=== PATIENT | female | born 1965 | race Caucasian/White ===

== ENCOUNTER → 2018-02-23 20:42 | Emergency (ER) | payer OTHER ==
[~2018-02-23 20:42] MED LIST: LORazepam TAB(*) 1 MG PO ONE
--- NOTE | 2018-02-23 22:25 | ED ---
Psychiatric Complaint - HPI Summary HPI Summary: The pt is a 52 y/o female presenting to [facility] c/o unmedicated anxiety for the last three years worsened today. She notes intermittent chest tightness rated 3/ 10 in severity, insomnia, tremors, L knee swelling and bilateral LE weakness but denies SI/HI and N/V/D. The sx are worsened by family problems such as the loss of her brother 3 years ago. She saw a counsellor today for the first time but was not given any medications. - History Of Current Complaint Chief Complaint: EDPsychosocial Time Seen by Provider: 02/23/18 21:54 Hx Obtained From: Patient, Family/Flotation Operator Onset/Duration: Still Present, Other - 3 years Timing: Constant Character: Anxious Aggravating Factor(s): Recent Stress Alleviating Factor(s): Nothing Has Suicidal: Denies: Thoughts, With A Plan Has Homicidal: Denies: Thoughts, With A Plan - Allergies/Home Medications Allergies/Adverse Reactions: Allergies Allergy/AdvReac Type Severity Reaction Status Date / Time No Known Allergies Allergy Verified 02/23/18 21:01 PMH/Surg Hx/FS Hx/Imm Hx Previously Healthy: No Endocrine/Hematology History: Denies: Hx Diabetes Cardiovascular History: Reports: Hx Hypertension - Previously medicated Sensory History: Denies: Hx Deafness Psychiatric History: 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 Denies: Hx Anxiety, Hx Attention Deficit Hyperactivity Disorder, Hx Autism, Hx Eating Disorder, Hx Oppositional [place] Disorder, Hx Depression, Hx Panic Disorder, Hx Post Traumatic Stress Disorder, Hx Inpatient Treatment, Hx Community Mental Health Tx, Hx Schizophrenia, Hx Bipolar Disorder, Hx Suicide Attempt, Hx of Violent Episodes Against Others, Other Psychiatric Issues/ Disorders - Cancer History Cancer Type, Location and Year: Breast Cancer - Surgical History Surgery Procedure, Year, and Place: Double mastectomy Infectious Disease History: No Infectious Disease History: Denies: Traveled Outside the [place] in Last 30 Days - Family History Known Family History: Positive: Cardiac Disease Negative: Respiratory Disease - Social History Occupation: Unemployed Lives: Alone Alcohol Use: None - Hx of EtOH abuse Substance Use Type: Reports: None Smoking Status (MU): Former Smoker Review of Systems Constitutional: Other - Positive: Insomnia Respiratory: Other - Positive: Chest tightness Negative: Vomiting, Diarrhea, Nausea Musculoskeletal: Other - Positive:Bilateral LE weakness, L knee swelling Positive: Anxious, Other - Negative: SI/HI All Other Systems Reviewed And Are Negative: Yes Physical Exam - Summary Physical Exam Summary: GENERAL: Patient is a well developed and nourished F who is lying comfortable in the stretcher. Patient is not in any acute respiratory distress. HEAD AND FACE: Normocephalic EYES: PERRLA, EOMI x 2. EARS: Hearing grossly intact. MOUTH: Oropharynx within normal limits. NECK: Supple, trachea is midline, no adenopathy, no JVD, no carotid bruit. CHEST: Symmetric, no tenderness at palpation LUNGS: Clear to auscultation bilaterally. No wheezing or crackles. CVS: Regular rate and rhythm, S1 and S2 present, no murmurs or gallops appreciated. ABDOMEN: Soft, non-tender. Bowel sounds are normal. No abdominal abnormal pulsations. EXTREMITIES: Full ROM in all major joints, no edema, no cyanosis or clubbing. NEURO: Alert and oriented x 3. No acute neurological deficits. Speech is normal and follows commands. SKIN: Dry and warm Triage Information Reviewed: Yes Vital Signs On Initial Exam: Initial Vitals Temp Pulse Resp BP Pulse Ox 98.6 F 88 18 146/86 97 02/23/18 20:58 02/23/18 20:58 02/23/18 20:58 02/23/18 20:58 02/23/18 20:58 Vital Signs Reviewed: Yes Diagnostics - Vital Signs Vital Signs Temp Pulse Resp BP Pulse Ox 02/23/18 20:58 98.6 F 88 18 146/86 97 - Laboratory Result Diagrams: 02/23/18 23:54 02/23/18 23:54 Lab Statement: Any lab studies that have been ordered have been reviewed, and results considered in the medical decision making process. - Radiology CXR Radiology Interpretation Completed By: ED Physician - IMPRESSION: No acute processes - EKG 23:03 Cardiac Rate: NL - 77 bpm EKG Rhythm: Sinus Rhythm Summary of EKG Findings: Normal axes Re-Evaluation - Re-Evaluation First Eval Re-Evaluation Time: 12:50 Change: Improved - The chest pain has decreased after taking Ativan Course/Dx - Course Course Of Treatment: A 52 year-old F presents to the ED with a CC of anxiety for the last three years worsened today. She notes intermittent chest tightness rated 3/10 in severity, insomnia, tremors, L knee swelling and LE weakness but denies SI/HI and N/V/D. A physical exam, Chest X-ray and EKG are all unremarkable. In the ED course, pt was given Lorazepam 1mg PO which improved the symptoms. Patient will be discharged with a final Dx of anxiety and chest pain. She has a follow up appointment with her therapist tomorrow morning. I discussed results with patient and he agrees with this plan. She is hemodynamically stable upon discharge. Strict return precautions given and she will otherwise follow up with a motion study engineer. Allergies noted. - Differential Dx/Clinical Impression Provider Diagnosis: Anxiety, Chest pain Discharge - Sign-Out/Discharge Documenting (check all that apply): Patient Departure - DC - Discharge Plan Condition: Improved Disposition: HOME Patient Education Materials: Chest Pain (ED), Anxiety (ED) Referrals: Wilder Kwon MD [Medical Doctor] - As Soon As Possible Binta Corey MD [Primary Care Provider] - Additional Instructions: Follow up with the motion study engineer as soon as possible. Return to ED for any new or worsening symptoms - Billing Disposition and Condition Condition: IMPROVED Disposition: Home - Attestation Statements Document Initiated by Scribe: Yes Documenting Scribe: Antonella Kelly Provider For Whom Jostin is Documenting (Include Credential): Dr. Nichol Rayo MD Scribe Attestation: Antonella Castro , scribed for Dr. Nichol Rayo MD on 02/24/18 at 0519. Scribe Documentation Reviewed: Yes Provider Attestation: The documentation as recorded by the Antonella saini accurately reflects the service I personally performed and the decisions made by me, Dr. Nichol Rayo MD
[2018-02-24 00:01] LABS: ABS Basophils 0.2 10^3/ul (0-0.2); ABS Eosinophils 0.1 10^3/ul (0-0.6); ABS Lymphocytes 3.5 10^3/ul (1.0-4.8); ABS Monocytes 0.5 10^3/ul (0-0.8); ABS Neutrophils 6.2 10^3/ul (1.5-7.7); ABS Nucleated RBC 0 10^3/ul; Eosinophil % 0.8 % (0-6); Hematocrit 43 % (35-47); Hemoglobin 14.6 g/dl (12.0-16.0); Lymphocyte % 33.5 % (25-47); Mean Corpuscular HGB Conc 34 g/dl (31-36); Mean Corpuscular Hemoglobin 30 pg (27-31); Mean Corpuscular Volume 87 fL (80-97); Mean Platelet Volume 8.1 um3 (7.4-10.4); Nucleated Red Blood Cells % 0.1; Platelet Count 198 10^3/ul (150-450); Red Blood Count 4.91 10^6/ul (4.00-5.40); Red Cell Distribution Width 14 % (10.5-15); White Blood Count 10.6 10^3/ul (3.5-10.8)
[2018-02-24 00:26] LABS: EGFR Non-African American 79.9 (>60); INR 0.92 (0.77-1.02)
[2018-02-24 03:47] VITALS: BP 00/00
--- NOTE | 2018-02-24 08:06 | RAD ---
HISTORY: CP COMPARISONS: None VIEWS: 2 : frontal AP view of the chest at 11:15 PM FINDINGS: LINES AND TUBES: None. CARDIOMEDIASTINAL SILHOUETTE: The cardiomediastinal silhouette is normal for portable technique. PLEURA: The costophrenic angles are sharp. No pleural abnormalities are noted. LUNG PARENCHYMA: The lungs are clear. ABDOMEN: The upper abdomen is clear. There is no subphrenic gas. BONES AND SOFT TISSUES: No bone or soft tissue abnormalities are noted. IMPRESSION: NO ACTIVE CARDIOPULMONARY DISEASE. R0
== END | disposition home or self-care (01) ==
LOC: ED 20:42
DX: F41.9 Anxiety disorder, unspecified (principal); R07.89 Other chest pain; Z87.891 Personal history of nicotine dependence
CPT/HCPCS: 36415; 71045; 80053; 83605; 83735; 83880; 84484; 85025; 85379; 85610; 85730; 93005; 99282; A9270-GY

== ENCOUNTER 2018-02-25 08:36 | Emergency (ER) | payer OTHER ==
[2018-02-25] MEDS ORDERED: NS 0.9% 1000 ML* 1,000 ML IV ONE (09:10)
[2018-02-25] MEDS ORDERED: LORazepam INJ* 2 MG/ML 1 ML VIAL IV PUSH ONE (09:10)
[2018-02-25 09:29] LABS: ABS Basophils 0.1 10^3/ul (0-0.2); ABS Eosinophils 0 10^3/ul (0-0.6); ABS Lymphocytes 2.3 10^3/ul (1.0-4.8); ABS Monocytes 0.4 10^3/ul (0-0.8); ABS Neutrophils 6.2 10^3/ul (1.5-7.7); ABS Nucleated RBC 0 10^3/ul; Eosinophil % 0.5 % (0-6); Hematocrit 45 % (35-47); Hemoglobin 15.4 g/dl (12.0-16.0); Lymphocyte % 25.2 % (25-47); Mean Corpuscular HGB Conc 34 g/dl (31-36); Mean Corpuscular Hemoglobin 30 pg (27-31); Mean Corpuscular Volume 86 fL (80-97); Mean Platelet Volume 8.5 fL (7.4-10.4); Nucleated Red Blood Cells % 0; Platelet Count 223 10^3/ul (150-450); Red Cell Distribution Width 13 % (10.5-15); White Blood Count 9.1 10^3/ul (3.5-10.8)
[2018-02-25 09:49] LABS: EGFR Non-African American 90.9 (>60)
--- NOTE | 2018-02-25 10:10 | RAD ---
INDICATION: Blurry vision and headache COMPARISON: None. TECHNIQUE: Contiguous axial sections of the brain were obtained from the skull base to the vertex without contrast. FINDINGS: The ventricles, cisterns and sulci are within normal limits. The michelle-white matter differentiation is adequately maintained and there is no sulcal effacement. No significant focal abnormality or mass effect is present. There is no evidence for intracranial hemorrhage. No significant focal osseous abnormality is present. The visualized portion of the paranasal sinuses appear clear. The mastoid air cells are well aerated bilaterally. IMPRESSION: Normal CT of the brain.
[2018-02-25 11:04] VITALS: BP 125/82
--- NOTE | 2018-02-25 11:09 | ED ---
Complex/Multi-Sys Presentation - HPI Summary HPI Summary: Patient is a 52-year-old female who was seen here in the ED 3 days ago for generalized anxiety presenting to the ED for feelings of "not feeling good." She states the past week or so she has been feeling slightly short of breath, with intermittent chest pains and some nausea. She is tearful on arrival and is tearful to all questioning by provider. Denies any fevers, sweats, chills. She does endorse some intermittent headaches and some blurry vision when she is having the chest pain and nausea. Denies this at this time. She is requesting a CT scan of the brain stating she is feeling "off" and wants to know what this is from. She has no significant PMH. Patient is a smoker, denies any alcohol or drug use. Denies any history of anxiety, but endorses some depression. She has an appointment next week to go over counseling for possibly new depression anxiety diagnoses. is at bedside. - History Of Current Complaint Chief Complaint: EDGeneral Time Seen by Provider: 02/25/18 08:48 Hx Obtained From: Patient, Family/Mason Liner Onset/Duration: Sudden Onset, Lasting Days Timing: Intermittent, Lasting: Severity Currently: Mild Severity Initially: Mild Location: Pain At: - midsternal chest region non-radiating Associated Signs And Symptoms: Positive: Dizziness, Weakness, Chest Pain, Palpitations, Nausea. 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 Denies: Hx Anxiety, Hx Attention Deficit Hyperactivity Disorder, Hx Autism, Hx Eating Disorder, Hx Oppositional [place] Disorder, Hx Depression, Hx Panic Disorder, Hx Post Traumatic Stress Disorder, Hx Inpatient Treatment, Hx Community Mental Health Tx, Hx Schizophrenia, Hx Bipolar Disorder, Hx Suicide Attempt, Hx of Violent Episodes Against Others, Other Psychiatric Issues/ Disorders - Cancer History Cancer Type, Location and Year: Breast Cancer - Surgical History Surgery Procedure, Year, and Place: Double mastectomy - Immunization History Hx Pertussis Vaccination: No Immunizations Up to Date: Yes Infectious Disease History: No Infectious Disease History: Denies: Traveled Outside the [place] in Last 30 Days - Family History Known Family History: Positive: Cardiac Disease Negative: Respiratory Disease - Social History Occupation: Employed Full-time Lives: With Family Alcohol Use: None Hx Substance Use: No Substance Use Type: Reports: Marijuana Hx Tobacco Use: Yes Smoking Status (MU): Heavy Every Day Tobacco Smoker Review of Systems Negative: Fever, Chills, Fatigue, Skin Diaphoresis Positive: Blurred Vision Negative: Sore Throat Positive: Chest Pain. Negative: Palpitations Negative: Shortness Of Breath, Cough Positive: Nausea. Negative: Abdominal Pain, Vomiting, Diarrhea Negative: Arthralgia, Myalgia Skin: Negative Neurological: Negative All Other Systems Reviewed And Are Negative: Yes Physical Exam Triage Information Reviewed: Yes Vital Signs On Initial Exam: Initial Vitals Temp Pulse Resp BP Pulse Ox 98.1 F 79 16 140/90 97 02/25/18 08:42 02/25/18 08:42 02/25/18 08:42 02/25/18 08:42 02/25/18 08:42 Vital Signs Reviewed: Yes Appearance: Positive: Well-Appearing, Well-Nourished Skin: Positive: Warm, Skin Color Reflects Adequate Perfusion Head/Face: Positive: Normal Head/Face Inspection Eyes: Positive: EOMI, JUAN, Conjunctiva Clear Neck: Positive: Supple, No Lymphadenopathy Respiratory/Lung Sounds: Positive: Clear to Auscultation, Breath Sounds Present Cardiovascular: Positive: RRR, Pulses are Symmetrical in both Upper and Lower Extremities Musculoskeletal: Positive: Normal, Strength/ROM Intact Neurological: Positive: Sensory/Motor Intact, Alert, Oriented to Person Place, Time, Speech Normal Psychiatric: Positive: Anxious - tearful AVPU Assessment: Alert Diagnostics - Vital Signs Vital Signs Temp Pulse Resp BP Pulse Ox 02/25/18 11:03 98.5 F 75 16 125/82 97 02/25/18 10:00 68 17 97 02/25/18 09:40 16 02/25/18 09:24 72 21 139/87 95 02/25/18 09:00 80 17 97 02/25/18 08:54 80 168/97 97 02/25/18 08:53 81 97 02/25/18 08:42 98.1 F 79 16 140/90 97 - Laboratory Lab Results: Lab Results 02/25/18 02/25/18 02/25/18 Range/Units 09:16 09:16 09:16 WBC 9.1 (3.5-10.8) 10^3/ul RBC 5.20 (4.00-5.40) 10^6/ul Hgb 15.4 (12.0-16.0) g/dl Hct 45 (35-47) % MCV 86 (80-97) fL MCH 30 (27-31) pg MCHC 34 (31-36) g/dl RDW 13 (10.5-15) % Plt Count 223 (150-450) 10^3/ul MPV 8.5 (7.4-10.4) fL Neut % (Auto) 68.3 (38-83) % Lymph % (Auto) 25.2 (25-47) % [place] % (Auto) 4.7 (0-7) % Eos % (Auto) 0.5 (0-6) % Baso % (Auto) 1.3 (0-2) % Absolute Neuts (auto) 6.2 (1.5-7.7) 10^3/ul Absolute Lymphs (auto) 2.3 (1.0-4.8) 10^3/ul Absolute Monos (auto) 0.4 (0-0.8) 10^3/ul Absolute Eos (auto) 0 (0-0.6) 10^3/ul Absolute Basos (auto) 0.1 (0-0.2) 10^3/ul Absolute Nucleated RBC 0 10^3/ul Nucleated RBC % 0 Sodium 136 (135-145) mmol/L Potassium TNP Chloride 108 (101-111) mmol/L Carbon Dioxide 25 (22-32) mmol/L Anion Gap 3 (2-11) mmol/L BUN 18 (6-24) mg/dL Creatinine 0.68 (0.51-0.95) mg/dL Est GFR ( Amer) 109.9 (>60) Est GFR (Non-Af Amer) 90.9 (>60) BUN/Creatinine Ratio 26.5 H (8-20) Glucose 96 (70-100) mg/dL Lactic Acid 0.6 (0.5-2.0) mmol/L Calcium 9.9 (8.6-10.3) mg/dL Total Bilirubin 0.50 (0.2-1.0) mg/dL AST TNP ALT 14 (7-52) U/L Alkaline Phosphatase 79 (34-104) U/L Troponin I 0.00 (<0.04) ng/mL C-Reactive Protein 7.40 (<8.01) mg/L Total Protein 7.5 (6.4-8.9) g/dL Albumin 4.4 (3.2-5.2) g/dL Globulin 3.1 (2-4) g/dL Albumin/Globulin Ratio 1.4 (1-3) Result Diagrams: 02/25/18 09:16 02/25/18 09:16 Lab Statement: Any lab studies that have been ordered have been reviewed, and results considered in the medical decision making process. Complex Multi-Symp Course/Dx Course Of Treatment: Patient is evaluated for generalized anxiety, chest pain, shortness of breath, headaches, blurry vision and nausea. She was given an Ativan 3 days ago in the ED while here for anxiety symptoms and states this relieved all of her symptoms. She denies any history of anxiety, but states this feels somewhat like anxiety as she is very tearful throughout questioning. Labs obtained and are all WNL. Again she improves with 1 mg Ativan. She is also given 1 L fluids and she appears dehydrated. Physical exam shows clubbing of the fingernails, lungs CTA, RRR, dry mucous membranes throughout, no abdominal pain on light palpation, no swelling of bilateral lower extremities. Pulses +2 bilaterally. Vital signs stable. She is given a prescription for 3 days Ativan and is to follow-up with her PCP immediately. She will be diagnosed with anxiety. Troponin negative. - Diagnoses Provider Diagnoses: Anxiety Discharge - Sign-Out/Discharge Documenting (check all that apply): Patient Departure - Discharge Plan Condition: Stable Disposition: HOME Prescriptions: LORazepam TAB(*) [Ativan 1 MG TAB (*)] 1 mg PO Q8H PRN #10 tab MDD 3 PRN Reason: Anxiety Referrals: Binta Corey MD [Primary Care Provider] - Additional Instructions: Please follow up with your PCP Ativan up to three times daily as needed for anxiety You should not need more than 1 pill per day typically for anxiety symptoms - Billing Disposition and Condition Condition: STABLE Disposition: Home
== END 2018-02-25 11:03 | disposition home or self-care (01) ==
LOC: ED 08:36
DX: F41.9 Anxiety disorder, unspecified (principal); R42 Dizziness and giddiness; R53.1 Weakness; R07.9 Chest pain, unspecified; R00.2 Palpitations; R11.0 Nausea; F17.210 Nicotine dependence, cigarettes, uncomplicated
CPT/HCPCS: 36415; 70450; 80053; 83605; 84484; 85025; 86140; 86703; 96374; 99282; J2060

== ENCOUNTER 2018-08-12 08:57 | Emergency (ER) | payer OTHER ==
[2018-08-12] MEDS ORDERED: Ketorolac INJ* 30 MG/ML 1 ML VIAL IV PUSH ONE (09:10)
--- NOTE | 2018-08-12 09:14 | ED ---
Lower Extremity - HPI Summary HPI Summary: This patient is a 52 year old female presenting to [facility] with a chief complaint of right hip pain since two weeks ago. She states that she was stepping over a chair and felt pain in her hip that has become progressively worse since the incident. She states it hurts to touch that part of the right leg. She rates her pain 7/10 in severity. - History of Current Complaint Chief Complaint: EDHipPelvisInjury Stated Complaint: "I THINK I DISLOCATED MY HIP" PER PT Time Seen by Provider: 08/12/18 09:06 Hx Obtained From: Patient Onset of Pain: Post Accident Onset/Duration: Weeks Severity Initially: Moderate Severity Currently: Moderate Pain Intensity: 7 Pain Scale Used: 0-10 Numeric Timing: Constant Location: Is Discrete @ - Right hip - Allergies/Home Medications Allergies/Adverse Reactions: Allergies Allergy/AdvReac Type Severity Reaction Status Date / Time No Known Allergies Allergy Verified 08/12/18 09:03 Home Medications: Home Medications risperiDONE [Risperidone] 0.5 mg PO BID 08/12/18 [History Confirmed 08/12/18] PMH/Surg Hx/FS Hx/Imm Hx Endocrine/Hematology History: Denies: Hx Diabetes Cardiovascular History: Reports: Hx Hypertension - Previously medicated Sensory History: Denies: Hx Deafness Psychiatric History: 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 Denies: Hx Anxiety, Hx Attention Deficit Hyperactivity Disorder, Hx Autism, Hx Eating Disorder, Hx Oppositional [place] Disorder, Hx Depression, Hx Panic Disorder, Hx Post Traumatic Stress Disorder, Hx Inpatient Treatment, Hx Community Mental Health Tx, Hx Schizophrenia, Hx Bipolar Disorder, Hx Suicide Attempt, Hx of Violent Episodes Against Others, Other Psychiatric Issues/ Disorders - Cancer History Cancer Type, Location and Year: Breast Cancer - Surgical History Surgery Procedure, Year, and Place: Double mastectomy Infectious Disease History: No Infectious Disease History: Denies: Traveled Outside the [place] in Last 30 Days - Family History Known Family History: Positive: Cardiac Disease Negative: Respiratory Disease - Social History Alcohol Use: None Hx Substance Use: Yes Substance Use Type: Reports: Marijuana Hx Tobacco Use: Yes Smoking Status (MU): Heavy Every Day Tobacco Smoker Review of Systems Negative: Fever Positive: Other - Right hip pain All Other Systems Reviewed And Are Negative: Yes Physical Exam - Summary Physical Exam Summary: Appearance: The patient is well-nourished in no acute distress and in no acute pain. Skin: The skin is warm and dry and skin color reflects adequate perfusion. HEENT: The head is normocephalic and atraumatic. The pupils are equal and reactive. The conjunctivae are clear and without drainage. Nares are patent and without drainage. Mouth reveals moist mucous membranes and the throat is without erythema and exudate. The external ears are intact. The ear canals are patent and without drainage. The tympanic membranes are intact. Neck: The neck is supple with full range of motion and non-tender. There are no carotid bruits. There is no neck vein distension. Respiratory: Chest is non-tender. Lungs are clear to auscultation and breath sounds are symmetrical and equal. Cardiovascular: Heart is regular rate and rhythm. There is no murmur or rub auscultated. There is no peripheral edema and pulses are symmetrical and equal. Abdomen: The abdomen is soft and non-tender. There are normal bowel sounds heard in all four quadrants and there is no organomegaly palpated. Musculoskeletal: There is no back tenderness noted.. There is good capillary refill. There is no peripheral edema or calf tenderness elicited. Tender over the rip. Tender to external rotation of the right leg. Neurological: Patient is alert and oriented to person, place and time. The patient has symmetrical motor strength in all four extremities. Cranial nerves are grossly intact. Deep tendon reflexes are symmetrical and equal in all four extremities. Psychiatric: The patient has an appropriate affect and does not exhibit any anxiety or depression. . Triage Information Reviewed: Yes Vital Signs On Initial Exam: Initial Vitals Temp Pulse Resp BP Pulse Ox 97.3 F 67 16 110/76 98 08/12/18 09:00 08/12/18 09:00 08/12/18 09:00 08/12/18 09:00 08/12/18 09:00 Vital Signs Reviewed: Yes Diagnostics - Vital Signs Vital Signs Temp Pulse Resp BP Pulse Ox 08/12/18 09:00 97.3 F 67 16 110/76 98 - Laboratory Lab Statement: Any lab studies that have been ordered have been reviewed, and results considered in the medical decision making process. - Radiology Right Hip/Pelvis XR Radiology Interpretation Completed By: Radiologist Summary of Radiographic Findings: No fracture of the right hip is noted. Pelvic ring is intact. ED Provider has reviewed this report. Re-Evaluation - Re-Evaluation First Eval Re-Evaluation Time: 10:48 Comment: Discussed results and plan for discharge with patient. Lower Extremity Course/Dx - Course Course Of Treatment: Ms. Carnes hurt her right hip a few days ago with it has been gradually getting worse. X-ray was negative and she improved with Toradol here. She's been taking oxycodone. I recommended continuing anti- inflammatories and follow up with her PCP - Diagnoses Provider Diagnoses: Contusion, hip, Thigh contusion Discharge - Sign-Out/Discharge Documenting (check all that apply): Patient Departure - Discharge Patient Received Moderate/Deep Sedation with Procedure: No - Discharge Plan Condition: Stable Disposition: HOME Patient Education Materials: Hip Contusion (ED) Forms: *Work Release Referrals: [facility] [place] [facility] REFERRAL [Outside] - 2 Days Additional Instructions: Return to ED with any new or worsening symptoms. - Billing Disposition and Condition Condition: STABLE Disposition: Home - Attestation Statements Document Initiated by Jostin: Yes Documenting Scribe: Jonathan Wheeler Provider For Whom Jostin is Documenting (Include Credential): Brian Sanchez MD Scribe Attestation: Jonathan Castro, scribed for Brian Sanchez MD on 08/12/18 at 1133. Scribe Documentation Reviewed: Yes Provider Attestation: The documentation as recorded by the Jonathan saini accurately reflects the service I personally performed and the decisions made by me, Brian Sanchez MD Status of Scribe Document: Viewed
[2018-08-12] MEDS ORDERED: Ketorolac INJ* 30 MG/ML 1 ML VIAL ONE (09:19)
[2018-08-12] MEDS ORDERED: Ketorolac INJ* 30 MG/ML 1 ML VIAL IM ONE (09:23)
[2018-08-12 10:58] VITALS: BP 116/80
== END 2018-08-12 10:56 | disposition home or self-care (01) ==
LOC: ED 08:57
DX: S70.11XA Contusion of right thigh, initial encounter (principal); I10 Essential (primary) hypertension; Z85.3 Personal history of malignant neoplasm of breast; F17.210 Nicotine dependence, cigarettes, uncomplicated
CPT/HCPCS: 96372; 99282; J1885